=== PATIENT | male | born 1935 | race Caucasian/White ===

== ENCOUNTER 2021-09-01 08:44 | Outpatient (CLI) | payer MEDICARE, OTHER | END 2021-09-01 08:45 | disposition home or self-care (01) | LOC: CSHWCC 08:44 | PROVIDERS: ATTEND Nurse Practitioner Family | DX: T86.820 Skin graft (allograft) rejection (principal); R60.0 Localized edema; E78.5 Hyperlipidemia, unspecified; G60.9 Hereditary and idiopathic neuropathy, unspecified; I70.202 Unspecified atherosclerosis of native arteries of extremities, left leg; I87.2 Venous insufficiency (chronic) (peripheral); N30.41 Irradiation cystitis with hematuria; R56.9 Unspecified convulsions | CPT/HCPCS: 99212; G0463 ==

== ENCOUNTER 2021-09-05 11:54 | Outpatient (CLI) | payer MEDICARE | END 2021-09-05 11:55 | disposition home or self-care (01) | LOC: CSHWCC 11:54 | PROVIDERS: ATTEND Nurse Practitioner Family | DX: N30.41 Irradiation cystitis with hematuria (principal) | CPT/HCPCS: G0277 ==

== ENCOUNTER 2021-09-06 08:06 | Outpatient (CLI) | payer MEDICARE | END 2021-09-06 08:07 | disposition home or self-care (01) | LOC: CSHWCC 08:06 | PROVIDERS: ATTEND Nurse Practitioner Family | DX: N30.41 Irradiation cystitis with hematuria (principal) ==

== ENCOUNTER 2021-09-07 10:33 | Outpatient (CLI) | payer MEDICARE | END 2021-09-07 10:34 | disposition home or self-care (01) | LOC: CSHWCC 10:33 | PROVIDERS: ATTEND Nurse Practitioner Family | DX: N30.41 Irradiation cystitis with hematuria (principal) | CPT/HCPCS: G0277 ==

== ENCOUNTER 2021-09-12 09:39 | Outpatient (CLI) | payer MEDICARE | END 2021-09-12 09:40 | disposition home or self-care (01) | LOC: CSHWCC 09:39 | PROVIDERS: ATTEND Nurse Practitioner Family | DX: N30.41 Irradiation cystitis with hematuria (principal) | CPT/HCPCS: G0277 ==

== ENCOUNTER 2021-09-13 10:54 | Outpatient (CLI) | payer MEDICARE | END 2021-09-13 10:55 | disposition home or self-care (01) | LOC: CSHWCC 10:54 | PROVIDERS: ATTEND Nurse Practitioner Family | DX: N30.41 Irradiation cystitis with hematuria (principal) | CPT/HCPCS: 97139; G0277 ==

== ENCOUNTER 2021-09-14 09:17 | Outpatient (CLI) | payer MEDICARE | END 2021-09-14 09:18 | disposition home or self-care (01) | LOC: CSHWCC 09:17 | PROVIDERS: ATTEND Nurse Practitioner Family | DX: N30.41 Irradiation cystitis with hematuria (principal) ==

== ENCOUNTER 2021-09-15 10:21 | Outpatient (CLI) | payer MEDICARE | END 2021-09-15 10:22 | disposition home or self-care (01) | LOC: CSHWCC 10:21 | PROVIDERS: ATTEND Nurse Practitioner Family | DX: N30.41 Irradiation cystitis with hematuria (principal) | CPT/HCPCS: 97139; G0277 ==

== ENCOUNTER 2021-09-16 09:46 | Outpatient (CLI) | payer MEDICARE | END 2021-09-16 09:47 | disposition home or self-care (01) | LOC: CSHWCC 09:46 | PROVIDERS: ATTEND Nurse Practitioner Family | DX: N30.41 Irradiation cystitis with hematuria (principal) | CPT/HCPCS: G0277 ==

== ENCOUNTER 2021-09-19 09:56 | Outpatient (CLI) | payer MEDICARE | END 2021-09-19 09:57 | disposition home or self-care (01) | LOC: CSHWCC 09:56 | PROVIDERS: ATTEND Nurse Practitioner Family | DX: N30.41 Irradiation cystitis with hematuria (principal) | CPT/HCPCS: 97139; G0277 ==

== ENCOUNTER 2021-09-20 10:46 | Outpatient (CLI) | payer MEDICARE | END 2021-09-20 10:47 | disposition home or self-care (01) | LOC: CSHWCC 10:46 | PROVIDERS: ATTEND Nurse Practitioner Family | DX: N30.41 Irradiation cystitis with hematuria (principal) ==

== ENCOUNTER 2021-09-21 10:57 | Outpatient (CLI) | payer MEDICARE | END 2021-09-21 10:58 | disposition home or self-care (01) | LOC: CSHWCC 10:57 | PROVIDERS: ATTEND Nurse Practitioner Family | DX: N30.41 Irradiation cystitis with hematuria (principal) ==

== ENCOUNTER 2021-09-23 10:41 | Outpatient (CLI) | payer MEDICARE | END 2021-09-23 10:42 | disposition home or self-care (01) | LOC: CSHWCC 10:41 | PROVIDERS: ATTEND Nurse Practitioner Family | DX: N30.41 Irradiation cystitis with hematuria (principal) | CPT/HCPCS: G0277 ==

== ENCOUNTER 2021-09-26 10:49 | Outpatient (CLI) | payer MEDICARE | END 2021-09-26 10:50 | disposition home or self-care (01) | LOC: CSHWCC 10:49 | PROVIDERS: ATTEND Nurse Practitioner Family | DX: N30.41 Irradiation cystitis with hematuria (principal) | CPT/HCPCS: G0277 ==

== ENCOUNTER 2021-09-27 10:58 | Outpatient (CLI) | payer MEDICARE | END 2021-09-27 10:59 | disposition home or self-care (01) | LOC: CSHWCC 10:58 | PROVIDERS: ATTEND Nurse Practitioner Family | DX: N30.41 Irradiation cystitis with hematuria (principal) | CPT/HCPCS: G0277 ==

== ENCOUNTER 2021-09-28 10:49 | Outpatient (CLI) | payer MEDICARE | END 2021-09-28 10:50 | disposition home or self-care (01) | LOC: CSHWCC 10:49 | PROVIDERS: ATTEND Nurse Practitioner Family | DX: N30.41 Irradiation cystitis with hematuria (principal) ==

== ENCOUNTER 2021-09-29 10:57 | Outpatient (CLI) | payer MEDICARE | END 2021-09-29 10:58 | disposition home or self-care (01) | LOC: CSHWCC 10:57 | PROVIDERS: ATTEND Nurse Practitioner Family | DX: N30.41 Irradiation cystitis with hematuria (principal) ==

== ENCOUNTER 2021-09-30 08:36 | Outpatient (CLI) | payer MEDICARE | END 2021-09-30 08:37 | disposition home or self-care (01) | LOC: CSHWCC 08:36 | PROVIDERS: ATTEND Nurse Practitioner Family | DX: N30.41 Irradiation cystitis with hematuria (principal) | CPT/HCPCS: 97139; G0277 ==

== ENCOUNTER 2021-10-18 11:10 | Outpatient (CLI) | payer MEDICARE | END 2021-10-18 11:11 | disposition home or self-care (01) | LOC: CSHWCC 11:10 | PROVIDERS: ATTEND Nurse Practitioner Family | DX: N30.41 Irradiation cystitis with hematuria (principal) ==

== ENCOUNTER 2021-10-20 11:07 | Outpatient (CLI) | payer MEDICARE | END 2021-10-20 11:08 | disposition home or self-care (01) | LOC: CSHWCC 11:07 | PROVIDERS: ATTEND Nurse Practitioner Family | DX: N30.41 Irradiation cystitis with hematuria (principal) ==

== ENCOUNTER 2021-10-25 11:50 | Outpatient (CLI) | payer MEDICARE | END 2021-10-25 11:51 | disposition home or self-care (01) | LOC: CSHWCC 11:50 | PROVIDERS: ATTEND Nurse Practitioner Family | DX: N30.41 Irradiation cystitis with hematuria (principal) ==

== ENCOUNTER 2021-10-26 11:09 | Outpatient (CLI) | payer MEDICARE | END 2021-10-26 11:10 | disposition home or self-care (01) | LOC: CSHWCC 11:09 | PROVIDERS: ATTEND Nurse Practitioner Family | DX: N30.41 Irradiation cystitis with hematuria (principal) ==

== ENCOUNTER 2021-10-27 13:21 | Outpatient (CLI) | payer MEDICARE | END 2021-10-27 13:22 | disposition home or self-care (01) | LOC: CSHWCC 13:21 | PROVIDERS: ATTEND Nurse Practitioner Family | DX: N30.41 Irradiation cystitis with hematuria (principal) ==

== ENCOUNTER 2021-10-28 10:59 | Outpatient (CLI) | payer MEDICARE | END 2021-10-28 11:00 | disposition home or self-care (01) | LOC: CSHWCC 10:59 | PROVIDERS: ATTEND Nurse Practitioner Family | DX: N30.41 Irradiation cystitis with hematuria (principal) | CPT/HCPCS: 97139; G0277 ==

== ENCOUNTER 2021-11-01 15:16 | Outpatient (CLI) | payer MEDICARE | END 2021-11-01 15:17 | disposition home or self-care (01) | LOC: CSHWCC 15:16 | PROVIDERS: ATTEND Nurse Practitioner Family | DX: N30.41 Irradiation cystitis with hematuria (principal) | CPT/HCPCS: G0277 ==

== ENCOUNTER 2021-11-02 14:31 | Outpatient (CLI) | payer MEDICARE | END 2021-11-02 14:32 | disposition home or self-care (01) | LOC: CSHWCC 14:31 | PROVIDERS: ATTEND Nurse Practitioner Family | DX: N30.41 Irradiation cystitis with hematuria (principal) | CPT/HCPCS: G0277 ==

== ENCOUNTER 2021-11-03 12:13 | Outpatient (CLI) | payer MEDICARE | END 2021-11-03 12:14 | disposition home or self-care (01) | LOC: CSHWCC 12:13 | PROVIDERS: ATTEND Nurse Practitioner Family | DX: N30.41 Irradiation cystitis with hematuria (principal) | CPT/HCPCS: 97139; G0277 ==

== ENCOUNTER 2021-11-07 12:25 | Outpatient (CLI) | payer MEDICARE | END 2021-11-07 12:26 | disposition home or self-care (01) | LOC: CSHWCC 12:25 | PROVIDERS: ATTEND Nurse Practitioner Family | DX: N30.41 Irradiation cystitis with hematuria (principal) | CPT/HCPCS: 97139; G0277 ==

== ENCOUNTER 2021-11-08 14:36 | Outpatient (CLI) | payer MEDICARE | END 2021-11-08 14:37 | disposition home or self-care (01) | LOC: CSHWCC 14:36 | PROVIDERS: ATTEND Nurse Practitioner Family | DX: N30.41 Irradiation cystitis with hematuria (principal) | CPT/HCPCS: 97139; G0277 ==

== ENCOUNTER 2021-11-09 10:46 | Outpatient (CLI) | payer MEDICARE | END 2021-11-09 10:47 | disposition home or self-care (01) | LOC: CSHWCC 10:46 | PROVIDERS: ATTEND Nurse Practitioner Family | DX: N30.41 Irradiation cystitis with hematuria (principal) ==

== ENCOUNTER 2021-11-10 07:54 | Outpatient (CLI) | payer MEDICARE | END 2021-11-10 07:55 | disposition home or self-care (01) | LOC: CSHWCC 07:54 | PROVIDERS: ATTEND Nurse Practitioner Family | DX: N30.41 Irradiation cystitis with hematuria (principal) | CPT/HCPCS: 97139; G0277 ==

== ENCOUNTER 2021-11-15 12:43 | Outpatient (CLI) | payer MEDICARE | END 2021-11-15 12:44 | disposition home or self-care (01) | LOC: CSHWCC 12:43 | PROVIDERS: ATTEND Nurse Practitioner Family | DX: N30.21 Other chronic cystitis with hematuria (principal) | CPT/HCPCS: 97139; G0277 ==

== ENCOUNTER 2021-11-16 10:43 | Outpatient (CLI) | payer MEDICARE | END 2021-11-16 10:44 | disposition home or self-care (01) | LOC: CSHWCC 10:43 | PROVIDERS: ATTEND Nurse Practitioner Family | DX: N30.21 Other chronic cystitis with hematuria (principal) | CPT/HCPCS: 97139; G0277 ==

== ENCOUNTER 2021-11-21 13:15 | Outpatient (CLI) | payer MEDICARE | END 2021-11-21 13:16 | disposition home or self-care (01) | LOC: CSHWCC 13:15 | PROVIDERS: ATTEND Nurse Practitioner Family | DX: N30.21 Other chronic cystitis with hematuria (principal) | CPT/HCPCS: G0277 ==

== ENCOUNTER 2021-11-22 13:03 | Outpatient (CLI) | payer MEDICARE | END 2021-11-22 13:04 | disposition home or self-care (01) | LOC: CSHWCC 13:03 | PROVIDERS: ATTEND Nurse Practitioner Family | DX: N30.21 Other chronic cystitis with hematuria (principal) ==

== ENCOUNTER 2021-11-23 13:04 | Outpatient (CLI) | payer MEDICARE | END 2021-11-23 13:05 | disposition home or self-care (01) | LOC: CSHWCC 13:04 | PROVIDERS: ATTEND Nurse Practitioner Family | DX: N30.21 Other chronic cystitis with hematuria (principal) ==

== ENCOUNTER 2021-11-24 14:33 | Outpatient (CLI) | payer MEDICARE | END 2021-11-24 14:34 | disposition home or self-care (01) | LOC: CSHWCC 14:33 | PROVIDERS: ATTEND Nurse Practitioner Family | DX: N30.21 Other chronic cystitis with hematuria (principal) ==

== ENCOUNTER 2021-11-25 11:29 | Outpatient (CLI) | payer MEDICARE | END 2021-11-25 11:30 | disposition home or self-care (01) | LOC: CSHWCC 11:29 | PROVIDERS: ATTEND Nurse Practitioner Family | DX: N30.21 Other chronic cystitis with hematuria (principal) | CPT/HCPCS: 97139; G0277 ==

== ENCOUNTER 2021-11-28 13:07 | Outpatient (CLI) | payer MEDICARE | END 2021-11-28 13:08 | disposition home or self-care (01) | LOC: CSHWCC 13:07 | PROVIDERS: ATTEND Nurse Practitioner Family | DX: N30.21 Other chronic cystitis with hematuria (principal) | CPT/HCPCS: 97139; G0277 ==

== ENCOUNTER 2021-11-29 13:00 | Outpatient (CLI) | payer MEDICARE | END 2021-11-29 13:01 | disposition home or self-care (01) | LOC: CSHWCC 13:00 | PROVIDERS: ATTEND Nurse Practitioner Family | DX: N30.21 Other chronic cystitis with hematuria (principal) | CPT/HCPCS: 97139; G0277 ==